=== PATIENT | female | born 1980 | race Caucasian/White ===

== ENCOUNTER 2020-06-06 18:00 | Emergency (ER) | payer BC ==
[2020-06-08 04:22] LABS: SARS-CoV-2 NAA Not Detected (Not Detected)
== END 2020-06-06 19:39 | disposition home or self-care (01) ==
LOC: JVIRT 18:00
DX: Z11.52 Encounter for screening for COVID-19 (principal)
CPT/HCPCS: C9803; G2251-GT; U0003; U0005